=== PATIENT | male | born 1945 | race Caucasian/White ===

== ENCOUNTER 2018-08-26 14:06 | Outpatient (CLI) | payer MEDICARE, SELFPAY ==
[2018-08-26 14:36] LABS: Abs Immature Grans 0.01 k/cumm (0.0-0.09); Absolute Basophil Count 0.03 k/cumm (0.0-0.2); Absolute Eosinophil Count 0.16 k/cumm (0.0-0.7); Absolute Lymphocyte Count 2.21 k/cumm (1.2-3.4); Absolute Neutrophil Count 4.18 k/cumm (1.2-6.7); Basophils % 0.4; Eosinophils % 2.3; HCT 43.9 % (40.0-50.0); HGB 14.5 g/dL (13.5-17.5); Immature Grans % 0.1; Lymphocytes % 31.2; Mean Corpuscular Hemoglobin 28.3 pg (27.0-33.0); Mean Corpuscular Volume 85.6 fL (80-95); Mean Platelet Volume 9.7 fL (8.0-11.0); Monocytes % 7.1; Neutrophils % 58.9; Platelet Count 223 x1000/uL (130-400); RBC 5.13 m/cumm (4.50-6.00); RBC Distribution Width 14.5 % (11.8-14.1); White Blood Cell Count 7.09 k/cumm (4.4-10.8)
[2018-08-26 15:37] LABS: ALT 30 U/L (12-78); AST 22 U/L (15-37); Albumin 3.6 g/dL (3.4-5.0); Alkaline Phosphatase 76 U/L (46-116); Anion Gap 9.3 mmol/L (3-11); BUN 15 mg/dL (7-18); Bilirubin, Total 0.5 mg/dL (0.2-1.0); CO2 27.7 mmol/L (21.0-32.0); CREATININE 1.19 mg/dL (0.70-1.30); Calcium 8.8 mg/dL (8.5-10.1); Chloride 104 mmol/L (98-107); Glucose 124 mg/dL (70-100); Potassium 4.2 mmol/L (3.5-5.1); Sodium 141 mmol/L (136-145)
[2018-08-29 10:04] LABS: PSA, Diagnostic 1.2 ng/ml (0-6.5)
[2018-08-31 03:17] LABS: Testosterone, Total 515 ng/dL (240-950)
== END 2018-08-26 14:26 ==
PROVIDERS: PCP Internal Medicine; Visit Provider Internal Medicine
DX: C61 Malignant neoplasm of prostate (principal)
CPT/HCPCS: 36415; 80053; 84403; 84153; 85025

== ENCOUNTER 2018-11-24 11:45 | Outpatient (CLI) | payer MEDICARE, SELFPAY ==
[2018-11-24 12:15] LABS: Abs Immature Grans 0.01 k/cumm (0.0-0.09); Absolute Basophil Count 0.04 k/cumm (0.0-0.2); Absolute Eosinophil Count 0.24 k/cumm (0.0-0.7); Absolute Lymphocyte Count 2.33 k/cumm (1.2-3.4); Absolute Monocyte Count 0.83 k/cumm (0.11-0.7); Absolute Neutrophil Count 3.95 k/cumm (1.2-6.7); Basophils % 0.5; Eosinophils % 3.2; HCT 43.8 % (40.0-50.0); HGB 14.5 g/dL (13.5-17.5); Immature Grans % 0.1; Lymphocytes % 31.5; Mean Corp. HGB Concentration 33.1 g/dL (32.0-36.0); Mean Corpuscular Hemoglobin 28.8 pg (27.0-33.0); Mean Corpuscular Volume 86.9 fL (80-95); Mean Platelet Volume 9.8 fL (8.0-11.0); Monocytes % 11.2; Neutrophils % 53.5; Platelet Count 197 x1000/uL (130-400); RBC 5.04 m/cumm (4.50-6.00); RBC Distribution Width 14.4 % (11.8-14.1)
[2018-11-24 12:28] LABS: ALT 28 U/L (12-78); AST 21 U/L (15-37); Albumin 3.5 g/dL (3.4-5.0); Alkaline Phosphatase 62 U/L (46-116); Anion Gap 6.8 mmol/L (3-11); BUN 17 mg/dL (7-18); Bilirubin, Total 0.4 mg/dL (0.2-1.0); CO2 26.2 mmol/L (21.0-32.0); CREATININE 1.12 mg/dL (0.70-1.30); Calcium 8.6 mg/dL (8.5-10.1); Chloride 105 mmol/L (98-107); Glucose 98 mg/dL (70-100); Potassium 4.4 mmol/L (3.5-5.1); Sodium 138 mmol/L (136-145); Total Protein 7.2 g/dL (6.4-8.2)
[2018-11-25 08:53] LABS: PSA, Diagnostic 1.2 ng/ml (0-6.5)
[2018-11-27 15:04] LABS: Testosterone, Total 529 ng/dL (240-950)
== END 2018-11-24 12:05 ==
PROVIDERS: PCP Internal Medicine; Visit Provider Internal Medicine
DX: C61 Malignant neoplasm of prostate (principal)
CPT/HCPCS: 36415; 80053; 84403; 84153; 85025

== ENCOUNTER 2019-02-24 12:50 | Outpatient (CLI) | payer MEDICARE, SELFPAY ==
[2019-02-24 13:18] LABS: Abs Immature Grans 0.01 k/cumm (0.0-0.09); Absolute Basophil Count 0.05 k/cumm (0.0-0.2); Absolute Eosinophil Count 0.18 k/cumm (0.0-0.7); Absolute Lymphocyte Count 2.73 k/cumm (1.2-3.4); Absolute Neutrophil Count 3.78 k/cumm (1.2-6.7); Basophils % 0.7; Eosinophils % 2.4; HCT 42.4 % (40.0-50.0); HGB 14.1 g/dL (13.5-17.5); Immature Grans % 0.1; Lymphocytes % 36.6; Mean Corp. HGB Concentration 33.3 g/dL (32.0-36.0); Mean Corpuscular Hemoglobin 28.8 pg (27.0-33.0); Mean Corpuscular Volume 86.5 fL (80-95); Mean Platelet Volume 9.9 fL (8.0-11.0); Monocytes % 9.4; Neutrophils % 50.8; Platelet Count 213 x1000/uL (130-400); RBC Distribution Width 14.2 % (11.8-14.1); White Blood Cell Count 7.45 k/cumm (4.4-10.8)
[2019-02-24 14:20] LABS: ALT 29 U/L (12-78); AST 23 U/L (15-37); Albumin 3.8 g/dL (3.4-5.0); Alkaline Phosphatase 70 U/L (46-116); Anion Gap 10.2 mmol/L (3-11); BUN 17 mg/dL (7-18); Bilirubin, Total 0.4 mg/dL (0.2-1.0); CO2 25.8 mmol/L (21.0-32.0); CREATININE 1.18 mg/dL (0.70-1.30); Calcium 8.8 mg/dL (8.5-10.1); Chloride 103 mmol/L (98-107); Glucose 87 mg/dL (70-100); Potassium 4.4 mmol/L (3.5-5.1); Sodium 139 mmol/L (136-145); Total Protein 7.2 g/dL (6.4-8.2)
[2019-02-27 09:55] LABS: PSA, Diagnostic 1.5 ng/ml (0-6.5)
[2019-02-28 03:58] LABS: Testosterone, Total 586 ng/dL (240-950)
== END 2019-02-24 13:10 ==
PROVIDERS: PCP Internal Medicine; Visit Provider Internal Medicine
DX: C61 Malignant neoplasm of prostate (principal)
CPT/HCPCS: 36415; 80053; 84403; 84153; 85025

== ENCOUNTER 2019-05-24 16:12 | Outpatient (CLI) | payer MEDICARE, SELFPAY ==
[2019-05-24 17:12] LABS: Abs Immature Grans 0.01 k/cumm (0.0-0.09); Absolute Basophil Count 0.03 k/cumm (0.0-0.2); Absolute Eosinophil Count 0.19 k/cumm (0.0-0.7); Absolute Monocyte Count 0.92 k/cumm (0.11-0.7); Absolute Neutrophil Count 5.17 k/cumm (1.2-6.7); Basophils % 0.3; Eosinophils % 2.2; HCT 41.7 % (40.0-50.0); Immature Grans % 0.1; Lymphocytes % 28.3; Mean Corp. HGB Concentration 33.6 g/dL (32.0-36.0); Mean Corpuscular Hemoglobin 29.2 pg (27.0-33.0); Mean Corpuscular Volume 87.1 fL (80-95); Monocytes % 10.4; Neutrophils % 58.7; Platelet Count 203 x1000/uL (130-400); RBC 4.79 m/cumm (4.50-6.00); RBC Distribution Width 14.3 % (11.8-14.1); White Blood Cell Count 8.82 k/cumm (4.4-10.8)
[2019-05-24 17:30] LABS: ALT 30 U/L (12-78); AST 26 U/L (15-37); Albumin 3.8 g/dL (3.4-5.0); Alkaline Phosphatase 68 U/L (46-116); Anion Gap 11.4 mmol/L (3-11); BUN 18 mg/dL (7-18); Bilirubin, Total 0.4 mg/dL (0.2-1.0); CO2 24.6 mmol/L (21.0-32.0); Chloride 106 mmol/L (98-107); Estimated GFR 59.51 (mL/min/1.73m2); Glucose 94 mg/dL (70-100); Potassium 4.6 mmol/L (3.5-5.1); Sodium 142 mmol/L (136-145); Total Protein 6.9 g/dL (6.4-8.2)
[2019-05-26 09:04] LABS: PSA, Diagnostic 1.7 ng/ml (0-6.5)
[2019-05-27 11:41] LABS: Testosterone, Total 552 ng/dL (240-950)
== END 2019-05-24 16:32 ==
PROVIDERS: PCP Internal Medicine; Visit Provider Internal Medicine
DX: C61 Malignant neoplasm of prostate (principal)
CPT/HCPCS: 36415; 80053; 84403; 84153; 85025

== ENCOUNTER 2019-08-23 14:25 | Outpatient (CLI) | payer MEDICARE, SELFPAY ==
[2019-08-23 15:02] LABS: Abs Immature Grans 0.01 k/cumm (0.0-0.09); Absolute Basophil Count 0.04 k/cumm (0.0-0.2); Absolute Eosinophil Count 0.12 k/cumm (0.0-0.7); Absolute Lymphocyte Count 2.36 k/cumm (1.2-3.4); Absolute Monocyte Count 0.67 k/cumm (0.11-0.7); Absolute Neutrophil Count 4.16 k/cumm (1.2-6.7); Basophils % 0.5; Eosinophils % 1.6; HCT 41.8 % (40.0-50.0); HGB 13.9 g/dL (13.5-17.5); Immature Grans % 0.1; Lymphocytes % 32.1; Mean Corp. HGB Concentration 33.3 g/dL (32.0-36.0); Mean Corpuscular Hemoglobin 29.1 pg (27.0-33.0); Mean Corpuscular Volume 87.4 fL (80-95); Monocytes % 9.1; Neutrophils % 56.6; Platelet Count 235 x1000/uL (130-400); RBC 4.78 m/cumm (4.50-6.00); RBC Distribution Width 14.3 % (11.8-14.1); White Blood Cell Count 7.36 k/cumm (4.4-10.8)
[2019-08-23 16:19] LABS: ALT 24 U/L (16-63); AST 22 U/L (15-37); Albumin 3.7 g/dL (3.4-5.0); Alkaline Phosphatase 59 U/L (46-116); Anion Gap 9.2 mmol/L (3-11); BUN 18 mg/dL (7-18); Bilirubin, Total 0.4 mg/dL (0.2-1.0); CO2 27.8 mmol/L (21.0-32.0); CREATININE 1.33 mg/dL (0.70-1.30); Calcium 8.8 mg/dL (8.5-10.1); Chloride 105 mmol/L (98-107); Estimated GFR 52.85 (mL/min/1.73m2); Glucose 116 mg/dL (70-100); Potassium 4.3 mmol/L (3.5-5.1); Sodium 142 mmol/L (136-145); Total Protein 6.9 g/dL (6.4-8.2)
[2019-08-24 09:54] LABS: PSA, Diagnostic 1.8 ng/ml (0-6.5)
[2019-08-26 12:57] LABS: Testosterone, Total 506 ng/dL (240-950)
== END 2019-08-23 14:45 ==
PROVIDERS: PCP Internal Medicine; Visit Provider Internal Medicine
DX: C61 Malignant neoplasm of prostate (principal)
CPT/HCPCS: 36415; 80053; 84403; 84153; 85025

== ENCOUNTER 2019-11-22 10:06 | Outpatient (CLI) | payer MEDICARE, SELFPAY ==
[2019-11-22 10:28] LABS: Absolute Basophil Count 0.04 k/cumm (0.0-0.2); Absolute Eosinophil Count 0.19 k/cumm (0.0-0.7); Absolute Lymphocyte Count 2.27 k/cumm (1.2-3.4); Absolute Monocyte Count 0.68 k/cumm (0.11-0.7); Absolute Neutrophil Count 3.71 k/cumm (1.2-6.7); Basophils % 0.6; Eosinophils % 2.8; HCT 42.5 % (40.0-50.0); HGB 14.3 g/dL (13.5-17.5); Lymphocytes % 32.9; Mean Corp. HGB Concentration 33.6 g/dL (32.0-36.0); Mean Corpuscular Hemoglobin 29.4 pg (27.0-33.0); Mean Corpuscular Volume 87.4 fL (80-95); Mean Platelet Volume 9.4 fL (8.0-11.0); Monocytes % 9.9; Neutrophils % 53.8; Platelet Count 223 x1000/uL (130-400); RBC 4.86 m/cumm (4.50-6.00); RBC Distribution Width 13.8 % (11.8-14.1); White Blood Cell Count 6.89 k/cumm (4.4-10.8)
[2019-11-22 11:56] LABS: ALT 26 U/L (16-63); AST 21 U/L (15-37); Albumin 3.8 g/dL (3.4-5.0); Alkaline Phosphatase 63 U/L (46-116); Anion Gap 8.9 mmol/L (3-11); BUN 20 mg/dL (7-18); Bilirubin, Total 0.5 mg/dL (0.2-1.0); CO2 27.1 mmol/L (21.0-32.0); CREATININE 1.13 mg/dL (0.70-1.30); Calcium 9.1 mg/dL (8.5-10.1); Chloride 107 mmol/L (98-107); Glucose 84 mg/dL (74-106); Potassium 4.6 mmol/L (3.5-5.1); Sodium 143 mmol/L (136-145)
[2019-11-23 15:02] LABS: PSA, Diagnostic 1.9 ng/mL (0.0-6.5)
[2019-11-24 10:17] LABS: Testosterone, Total 477 ng/dL (240-950)
== END 2019-11-22 10:26 ==
PROVIDERS: PCP Internal Medicine; Visit Provider Internal Medicine
DX: C61 Malignant neoplasm of prostate (principal)
CPT/HCPCS: 36415; 80053; 84403; 84153; 85025

== ENCOUNTER 2020-03-22 07:21 | Outpatient (CLI) | payer MEDICARE, SELFPAY ==
[2020-03-22 07:48] LABS: Abs Immature Grans 0.01 k/cumm (0.0-0.09); Absolute Basophil Count 0.03 k/cumm (0.0-0.2); Absolute Eosinophil Count 0.19 k/cumm (0.0-0.7); Absolute Lymphocyte Count 2.03 k/cumm (1.2-3.4); Absolute Monocyte Count 0.85 k/cumm (0.11-0.7); Absolute Neutrophil Count 4.39 k/cumm (1.2-6.7); Basophils % 0.4; Eosinophils % 2.5; HCT 41.5 % (40.0-50.0); HGB 13.7 g/dL (13.5-17.5); Immature Grans % 0.1 %; Lymphocytes % 27.1; Mean Corpuscular Hemoglobin 29.1 pg (27.0-33.0); Mean Corpuscular Volume 88.3 fL (80-95); Mean Platelet Volume 9.7 fL (8.0-11.0); Monocytes % 11.3; Neutrophils % 58.6; Platelet Count 240 x1000/uL (130-400); RBC Distribution Width 14.5 % (11.8-14.1)
[2020-03-22 08:41] LABS: ALT 30 U/L (16-63); AST 25 U/L (15-37); Albumin 3.5 g/dL (3.4-5.0); Alkaline Phosphatase 62 U/L (46-116); Anion Gap 8.2 mmol/L (3-11); BUN 20 mg/dL (7-18); Bilirubin, Total 0.5 mg/dL (0.2-1.0); CO2 26.8 mmol/L (21.0-32.0); CREATININE 1.28 mg/dL (0.70-1.30); Calcium 8.5 mg/dL (8.5-10.1); Chloride 105 mmol/L (98-107); Estimated GFR 55.09 (mL/min/1.73m2); Glucose 82 mg/dL (74-106); Potassium 4.4 mmol/L (3.5-5.1); Sodium 140 mmol/L (136-145); Total Protein 6.9 g/dL (6.4-8.2)
== END 2020-03-22 07:41 ==
PROVIDERS: PCP Internal Medicine; Visit Provider Internal Medicine
DX: C61 Malignant neoplasm of prostate (principal)
CPT/HCPCS: 36415; 80053; 84153; 85025

== ENCOUNTER 2020-07-25 03:03 | Outpatient (CLI) | payer MEDICARE, SELFPAY ==
[2020-07-25 10:28] LABS: Abs Immature Grans 0.01 10^3/uL (0.0-0.06); Absolute Basophil Count 0.05 10^3/uL (0.0-0.2); Absolute Eosinophil Count 0.16 10^3/uL (0.0-0.7); Absolute Monocyte Count 0.75 10^3/uL (0.1-0.8); Absolute Neutrophil Count 3.17 10^3/uL (1.2-6.7); Basophils % 0.8; Eosinophils % 2.6; HCT 43.5 % (40.0-50.0); HGB 14.3 g/dL (13.5-17.5); Immature Grans % 0.2; Lymphocytes % 31.5; MCH 28.9 pg (27.0-33.0); MCHC 32.9 % (32.0-36.0); MCV 88.1 fL (80-95); MPV 9.6 fL (8.0-11.0); Monocytes % 12.4; Neutrophils % 52.5; Nucleated RBC 0 %; Platelet Count 200 10^3/uL (130-400); RBC 4.94 10^6/uL (4.36-5.78); RDW-SD 44.4 fL; WBC 6.04 10^3/uL (4.4-10.8)
[2020-07-25 10:47] LABS: ALT 27 U/L (16-63); AST 22 U/L (15-37); Albumin 3.6 g/dL (3.4-5.0); Alkaline Phosphatase 59 U/L (46-116); Anion Gap 7.6 mmol/L (3-11); BUN 19 mg/dL (7-18); Bilirubin, Total 0.6 mg/dL (0.2-1.0); CO2 27.4 mmol/L (21.0-32.0); CREATININE 1.38 mg/dL (0.70-1.30); Calcium 8.9 mg/dL (8.5-10.1); Chloride 104 mmol/L (98-107); Estimated GFR 50.51 (mL/min/1.73m2); Glucose 97 mg/dL (74-106); Potassium 4.5 mmol/L (3.5-5.1); Sodium 139 mmol/L (136-145); Total Protein 7.1 g/dL (6.4-8.2)
[2020-07-26 15:35] LABS: PSA, Ultrasensitive 2.4 ng/mL (<= 6.5)
== END 2020-07-25 03:23 ==
PROVIDERS: PCP Internal Medicine; Visit Provider Internal Medicine
DX: C61 Malignant neoplasm of prostate (principal)
CPT/HCPCS: 36415; 80053; 84153; 85025

== ENCOUNTER 2020-11-21 02:54 | Outpatient (CLI) | payer MEDICARE, SELFPAY ==
[2020-11-21 09:05] LABS: Abs Immature Grans 0.01 10^3/uL (0.0-0.06); Absolute Basophil Count 0.05 10^3/uL (0.0-0.2); Absolute Lymphocyte Count 2.71 10^3/uL (1.2-3.4); Absolute Monocyte Count 0.71 10^3/uL (0.1-0.8); Basophils % 0.7; Eosinophils % 2.7; HCT 40.2 % (40.0-50.0); HGB 13.4 g/dL (13.5-17.5); Immature Grans % 0.1; Lymphocytes % 36.7; MCH 29.1 pg (27.0-33.0); MCHC 33.3 % (32.0-36.0); MCV 87.4 fL (80-95); MPV 9.4 fL (8.0-11.0); Monocytes % 9.6; Neutrophils % 50.2; Nucleated RBC 0 %; Platelet Count 233 10^3/uL (130-400); RDW 13.4 % (11.8-14.1); RDW-SD 42.6 fL; WBC 7.38 10^3/uL (4.4-10.8)
[2020-11-21 10:01] LABS: ALT 34 U/L (16-63); AST 23 U/L (15-37); Albumin 3.7 g/dL (3.4-5.0); Alkaline Phosphatase 78 U/L (46-116); Anion Gap 7.5 mmol/L (3-11); BUN 24 mg/dL (7-18); Bilirubin, Total 0.4 mg/dL (0.2-1.0); CO2 27.5 mmol/L (21.0-32.0); CREATININE 1.25 mg/dL (0.70-1.30); Calcium 8.8 mg/dL (8.5-10.1); Chloride 106 mmol/L (98-107); Estimated GFR 56.46 (mL/min/1.73m2); Glucose 83 mg/dL (74-106); Potassium 4.4 mmol/L (3.5-5.1); Sodium 141 mmol/L (136-145); Total Protein 7.2 g/dL (6.4-8.2)
[2020-11-22 11:59] LABS: PSA, Ultrasensitive 0.07 ng/mL (<= 6.5)
== END 2020-11-21 03:14 ==
PROVIDERS: PCP Internal Medicine; Visit Provider Internal Medicine
DX: C61 Malignant neoplasm of prostate (principal)
CPT/HCPCS: 36415; 80053; 84153; 85025

== ENCOUNTER 2021-02-25 03:50 | Outpatient (CLI) | payer MEDICARE, SELFPAY ==
[2021-02-25 10:57] LABS: Abs Immature Grans 0.01 10^3/uL (0.0-0.06); Absolute Basophil Count 0.05 10^3/uL (0.0-0.2); Absolute Eosinophil Count 0.13 10^3/uL (0.0-0.7); Absolute Lymphocyte Count 1.92 10^3/uL (1.2-3.4); Absolute Monocyte Count 0.66 10^3/uL (0.1-0.8); Absolute Neutrophil Count 3.67 10^3/uL (1.2-6.7); Basophils % 0.8; HGB 12.9 g/dL (13.5-17.5); Immature Grans % 0.2; Lymphocytes % 29.8; MCH 29.6 pg (27.0-33.0); MCHC 33.9 % (32.0-36.0); MCV 87.2 fL (80-95); MPV 9.7 fL (8.0-11.0); Monocytes % 10.2; Nucleated RBC 0 %; Platelet Count 233 10^3/uL (130-400); RBC 4.36 10^6/uL (4.36-5.78); RDW 13.2 % (11.8-14.1); RDW-SD 41.9 fL; WBC 6.44 10^3/uL (4.4-10.8)
[2021-02-25 11:10] LABS: ALT 34 U/L (16-63); AST 23 U/L (15-37); Albumin 3.6 g/dL (3.4-5.0); Alkaline Phosphatase 71 U/L (46-116); Anion Gap 8.7 mmol/L (3-11); BUN 23 mg/dL (7-18); Bilirubin, Total 0.4 mg/dL (0.2-1.0); CO2 26.3 mmol/L (21.0-32.0); CREATININE 1.2 mg/dL (0.70-1.30); Calcium 8.7 mg/dL (8.5-10.1); Chloride 106 mmol/L (98-107); Estimated GFR 59.18 (mL/min/1.73m2); Glucose 96 mg/dL (74-106); Potassium 4.1 mmol/L (3.5-5.1); Sodium 141 mmol/L (136-145); Total Protein 7.4 g/dL (6.4-8.2)
[2021-02-26 15:42] LABS: PSA, Ultrasensitive 0.02 ng/mL (<= 6.5)
[2021-02-27 17:00] LABS: Testosterone, Total <7.0 ng/dL (240-950)
== END 2021-02-25 03:51 | disposition home or self-care (01) ==
PROVIDERS: Internal Medicine; PCP Internal Medicine; Visit Provider Nurse Practitioner Adult Health
DX: C61 Malignant neoplasm of prostate (principal); Z79.818 Long term (current) use of other agents affecting estrogen receptors and estrogen levels
CPT/HCPCS: 36415; 80053; 84153; 84403; 85025

== ENCOUNTER 2021-07-03 09:21 | Outpatient (CLI) | payer MEDICARE, SELFPAY ==
--- OUTSIDE RECORDS SUMMARY | 2021-07-03 09:25 | XMS_ITS ---
:1945 Author Care Team Providers Name Role Phone DR. KIM GARSIA Primary Care Provider [phone] DR. KIM GARSIA Referring Provider [phone] KIM GARSIA (DIRECT) Primary Care Provider [phone] Allergies Code Code System Name Reaction Severity Status Onset [id number] RxNorm Zestril Hives ? Active ? Medications Name Status Start Date Stop Date ? ? Asprin Ec Low Dose 81 mg tablet,delayed release Active ? Not available Take 1 tablet every day by oral route. atorvastatin 40 mg tablet Active ? Not av ailable TAKE 1 TABLET BY MOUTH EVERY DAY bicalutamide 50 mg tablet Completed 01/19/20172016 Take 1 tablet every day by oral route. Calcium with Vitamin D 600 mg (1,500 mg)-400 unit tablet Active ? Not available Take by oral route. cannabidiol (CBD) oral oil Active ? Not a vailable daily Ciprodex 0.3 %-0.1 % ear drops,suspension Completed ? 03/13/2019 INSTILL 4 DROPS INTO AFFECTED EAR 2 TIMES PER DAY FOR 7 DAYS clotrimazole 1 % topical solution Completed 03/13/2019 03/13/2019 APPLY in Rt ear , 5 drops three times a day for 10 days AND SURROUNDING AREAS OF SKIN BY TOPICAL ROUTE 2 TIMES PER DAY IN THE MORNING AND EVENING cyclobenzaprine 10 mg tablet Active ? Not available 1/2 - 1 tab every 6-8 hrs as needed for muscle pain and spasm for low back - max 3/d Efudex 5 % topical cream Completed ? 020 APPLY A SUFFICIENT AMOUNT TO COVER THE LESIONS IN THE AFFECTED AREA(S) BY TOPICAL ROUTE 2 TIMES PER DAY emu oil (bulk) 100 % liquid Active 06/01/2016 Not available finasteride 5 mg tablet Active ? Not avai lable TAKE 1 TABLET BY MOUTH EVERY DAY gabapentin 300 mg capsule Completed ? 2019 Take 1 capsule 3 times a day by oral route as needed for 30 day s. ketoconazole 2 % topical cream Completed ? 0 01/24/2020 APPLY TO THE AFFECTED AREA(S) BY TOPICAL ROUTE ONCE DAILY leuprolide Completed 02/02/2017 06/03/2017 Lotrimin AF (clotrimazole) 1 % topical cream Completed ? 06/03/2017 APPLY TO THE AFFECTED AND SURROUNDING A REAS OF SKIN BY TOPICAL ROUTE 2 TIMES PER DAY IN THE MORNING AND EVENING for groin rash Lupron Depot 22.5 mg (3 month) intramuscular syringe kit Active 07/30/2020 Not available Inject 1 kit every 3 months by intramuscular route as needed. Medrol (Carlo) 4 mg tablets in a dose pack Completed ? 08/15/2020 take in am as directed with food meloxicam 15 mg tablet Completed ? 8 Take 1 tablet every day by oral route with meals for 21 days. mupirocin 2 % topical ointment Completed ? 0 01/24/2020 APPLY A SMALL AMOUNT TO THE AFFECTED AR EA on bottom lip BY TOPICAL ROUTE 3 TIMES PER DAY nitroglycerin 0.4 mg sublingual tablet Active ? Not available Place 1 tablet as needed by sublingual route as directed. take under tongue at onset of chest charanjit n while sitting /laying down - if pain persist repeat every 5 min for total of three and call 911 tamsulosin 0.4 mg capsule Active ? Not av ailable TAKE 2 CAPSULES BY MOUTH ONCE DAILY 1/2 HOUR FOLLOWING SAME M EAL EACH DAY Valtrex 1 gram tablet Completed ? 01/24/2020 Take 1 tablet every 12 hours by oral route for 3 days. Problems Name Status Onset Date Source ? Hearing Loss Active 02/13/2001 ? Coronary Arteriosclerosis Active 08/22/2001 ? Diverticulitis Unknown 12/11/2001 ? Diverticular Disease Active 10/11/2002 ? Plantar Fasciitis Active 07/16/2004 ? Rotator Cuff Syndrome Active 04/15/2007 ? Malignant Tumor of Prostate Active 06/15/2008 ? Hypercholesterolemia Active 04/26/2014 ? Hyperglycemia Active 04/26/2014 ? Pityriasis Versicolor Unknown 05/04/2014 ? Polyp of Colon Active 10/28/2016 ? Chronic Back Pain Active 10/28/2016 ? History of Male Erectile Disorder Active 10/28/2016 ? Adult Health Examination Active 10/28/2016 ? Bladder Muscle Dysfunction - Overactive Active 08/18/20 17 ? Medication Monitoring Unknown 10/27/2018 ? Benign Prostatic Hyperplasia Active 08/15/2020 ? Actinic Keratosis Active 08/15/2020 ? Prolapsed Lumbar Intervertebral Disc Active ? ? Procedures Date Name Performed by ? 12/09/2011 Repair of Shoulder Information not amggie cheema Notes: repair of left rotator cuff by Dr Thompson Results Lab Results Date Name Specimen Result Interpretation Description Value Range Status Address ? 08/09/2020 HbA1C WB High A1C 5.8 % <5.7 Final [facility] e (Hemoglobin % Hospi ashish a1C), Blood (Lab) : [address] [place] [address] ? ? WB Normal Estavegluc 120 calc <140 Final [facility] Hospital (Lab): [address] [place] [address] 08/09/2020 Lipid Panel, P Normal Chol 149 mg/dL <200 Gabriela [facility] Serum mg/dL Hospital (Lab): [address] [place] [address] ? ? P Normal Hdl 43 mg/dL 40-60 Final [facility] mg/dL Hospital (Lab): [address] [place] [address] ? ? P Normal Trig 108 mg/dL 30-15 Final [facility] 0 Hospital mg/dL (Lab): [address] [place] [address] ? ? P Normal LDL(C) 85 calc <100 Final [facility] Hospital (Lab): [address] [place] [address] ? ? P ? Risk 3.5 calc ? Final [facility] Hospital (Lab): [address] [place] [address] 08/09/2020 CMP, Serum or P Normal Na 141 mEq/L 136-1 Fin al [facility] Plasma 45 Hospital mEq/L (Lab): [address] [place] [address] ? ? P Normal K 4.5 mEq/L 3.5-5 Final [facility] .1 Hospital mEq/L (Lab): [address] [place] [address] ? ? P Normal Cl 105 mEq/L 98-10 Final [facility] 7 Hospital mEq/L (Lab): [address] [place] [address] ? ? P Normal Co2 27 mEq/L 21-31 Final [facility] mEq/L Hospital (Lab): [address] [place] [address] ? ? P ? Agap 13.5 ? Final [facility] calculation Hospi ashish (Lab): [address] [place] [address] ? ? P Normal Glu 89 mg/dL 70-10 Final [facility] 0 Hospital mg/dL (Lab): [address] [place] [address] ? ? P Normal Bun 18 mg/dL 7-18 Final [facility] mg/dL Hospital (Lab): [address] [place] [address] ? ? P Normal Creat 1.24 mg/dL 0.70- Final [facility] 1.30 Hospital mg/dL (Lab): [address] [place] [address] ? ? P ? Bn/cr 14.5 ratio ? Final [facility] (Lab): [address] [place] [address] ? ? P Normal Ca 9.1 mg/dL 8.5-1 Final [facility] 0.1 Hospital mg/dL (Lab): [address] [place] [address] ? ? P Normal Alkp 55 U/L 38-12 Final [facility] 6 U/L Hospital (Lab): [address] [place] [address] ? ? P Normal Alt 29 U/L 16-63 Final [facility] U/L Hospital (Lab): [address] [place] [address] ? ? P Normal Ast 22 U/L 15-37 Final [facility] U/L Hospital (Lab): [address] [place] [address] ? ? P Normal Tbil 0.5 mg/dL <=1.2 Final [facility] mg/dL Hospital (Lab): [address] [place] [address] ? ? P Normal Tp 7.0 g/dL 6.4-8 [facility] g/dL (Lab): [address] [place] [address] ? ? P Normal Alb 3.7 g/dL 3.4-5 [facility] .[facility] Hospital g/dL (Lab): [address] [place] [address] ? ? P ? Glob 3.28 mg/dL ? Final [facility] (Lab): [address] [place] [address] ? ? P ? A/g 1.1 calc ? Final [facility] Hospital (Lab): [address] [place] [address] ? ? P ? Egfraa 69.26 ? Final [facility] Hospital (Lab): [address] [place] [address] ? ? P ? Egfrnaa 57.14 ? Final [facility] Hospital (Lab): [address] [place] [address] 09/14/2019 Urinalysis, ? Appearance Clear ? ? Rh - Dipstick Internal Medicine: [facility] ? ? ? Glucose Negative ? ? [facility] - Internal Medicine: [facility] ? ? ? Bilirubin Small ? ? [facility] - Internal Medicine: [facility] ? ? ? Ketones Negative ? ? [facility] - Internal Medicine: [facility] ? ? ? Specific 1.010 ? ? [facility] [place] [facility]: [facility] ? ? ? Blood Negative ? ? [facility] - Internal Medicine: [facility] ? ? ? Ph 7.5 ? ? [facility] - Internal Medicine: [facility] ? ? ? Protein Negative ? ? [facility] - Internal Medicine: [facility] ? ? ? Urobilirubin Normal ? ? [facility] - Internal Medicine: [facility] ? ? ? Nitrates negative ? ? Rhc - Internal Medicine: [address] [place] [address] ? ? ? Leukocytes Negative ? ? [facility] - Internal Medicine: [address] [place] [address] 08/02/2019 HbA1C WB Normal A1C 5.9 % 4.5-6 Final [facility] e (Hemoglobin .2 % Hospi [facility] a1C), Blood (Lab) : [address] [place] [address] ? ? WB ? Eag 123 calc ? Final [facility] Hospital (Lab): [address] [place] [address] 08/02/2019 CMP, Serum or P Normal Na 141 mEq/L 136-1 Fin al [facility] Plasma 45 Hospital mEq/L (Lab): [address] [place] [address] ? ? P Normal K 4.8 mEq/L 3.5-5 Final [facility] .1 Hospital mEq/L (Lab): [address] [place] [address] ? ? P Normal Cl 106 mEq/L 98-10 Final [facility] 7 Hospital mEq/L (Lab): [address] [place] [address] ? ? P Normal Co2 28 mEq/L 21-32 Final [facility] mEq/L Hospital (Lab): [address] [place] [address] ? ? P ? Agap 12.9 ? Final [facility] calculation Hospi ashish (Lab): [address] [place] [address] ? ? P Normal Glu 89.0 mg/dL 70.0- Final [facility] e 100.0 Hospital mg/dL (Lab): [address] [place] [address] ? ? P High Bun 19 mg/dL 7-18 Final [facility] mg/dL Hospital (Lab): [address] [place] [address] ? ? P Normal Creat 1.24 mg/dL 0.70- Final [facility] e 1.30 Hospital mg/dL (Lab): [address] [place] [address] ? ? P ? Bn/cr 15.5 ratio ? Final [facility] (Lab): [address] [place] [address] ? ? P Normal Ca 9.1 mg/dL 8.5-1 Final [facility] 0.1 Hospital mg/dL (Lab): [address] [place] [address] ? ? P Normal Alkp 56 U/L 38-12 Final [facility] 6 U/L Hospital (Lab): [address] [place] [address] ? ? P Normal Alt 21 U/L 16-63 Final [facility] U/L Hospital (Lab): [address] [place] [address] ? ? P Normal Ast 29 U/L 15-37 Final [facility] U/L Hospital (Lab): [address] [place] [address] ? ? P Normal Tbil 0.4 mg/dL <=1.2 Final [facility] mg/dL Hospital (Lab): [address] [place] [address] ? ? P Normal Tp 7.1 g/dL 6.4-8 Final [facility] .[facility] Hospital g/dL (Lab): [address] [place] [address] ? ? P Normal Alb 3.7 g/dL 3.4-5 Final [facility] .[facility] Hospital g/dL (Lab): [address] [place] [address] ? ? P ? Glob 3.36 mg/dL ? Final [facility] (Lab): [address] [place] [address] ? ? P ? A/g 1.1 calc ? Final [facility] (Lab): [address] [place] [address] ? ? P ? Egfraa 69.45 ? Final [facility] Hospital (Lab): [address] [place] [address] ? ? P ? Egfrnaa 57.30 ? Final [facility] Hospital (Lab): [facility] 08/02/2019 Lipid Panel P Normal Chol 140 mg/dL <200 Final [facility] W/ Direct mg/dL Hospita l LDL, Serum (Lab): [facility] ? ? P Normal Hdl 47 mg/dL 40-60 Final [facility] mg/dL Hospital (Lab): [facility] ? ? P Normal Trig 49 mg/dL 30-15 Final [facility] 0 Hospital mg/dL (Lab): [facility] ? ? P Normal LDL(C) 84 calc <100 Final [facility] calc Hospital (Lab): [facility] ? ? P ? Risk 3.0 calc ? Final [facility] Hospital (Lab): [facility] 06/14/2018 Urinalysis, ? Appearance Clear ? ? Rhc - [facility] Internal Medicine: [address] [place] [address] ? ? ? Glucose negative ? ? [facility] - Internal Medicine: [address] [place] [address] ? ? ? Bilirubin negative ? ? [facility] - Internal Medicine: [address] [place] [address] ? ? ? Ketones negative ? ? [facility] - Internal Medicine: [address] [place] [address] ? ? ? Specific 1.025 ? ? [facility] - [place] [facility]: [address] [place] [address] ? ? ? Blood negative ? ? [facility] - Internal Medicine: [address] [place] [address] ? ? ? Ph 6.0 ? ? [facility] - Internal Medicine: [address] [place] [address] ? ? ? Protein negative ? ? [facility] - Internal Medicine: [address] [place] [address] ? ? ? Urobilirubin normal ? ? [facility] - Internal Medicine: [address] [place] [address] ? ? ? Nitrates negative ? ? [facility] - Internal Medicine: [address] [place] [address] ? ? ? Leukocytes negative ? ? [facility] - Internal Medicine: [address] [place] [address] 06/07/2018 Cbc ? Wbc 7.7 x10^3/uL 4.8-1 [facility] 0.8 Hospital x10^3 (Lab): 90 /uL [facility] ? ? ? Rbc 4.99 4.20- Final [facility] x10^6/uL 5.90 Hospital x10^6 (Lab): 90 /uL [facility] ? ? ? Hgb 14.3 g/dL 13.5- Final [facility] 17.5 Hospital g/dL (Lab): [facility] ? ? ? Hct 42.9 % 40.0- Final [facility] 50.0 Hospital % (Lab): [facility] ? ? ? Mcv 86.0 fL 80.0- Final [facility] 97.0 Hospital fL (Lab): [facility] ? ? Low Mch 28.7 pg 33.0- [facility] 36.0 Hospital pg (Lab): [facility] ? ? ? Mchc 33.3 g/dL 33.0- [facility] 36.0 Hospital g/dL (Lab): [facility] ? ? ? RDW-CV 14.3 % 11.6- Final [facility] 14.8 Hospital % (Lab): [facility] ? ? ? Plt 190 x10^3/uL 150-4 Final [facility] 00 Hospital x10^3 (Lab): 90 /uL [facility] ? ? ? Neut % 57.8 % 40.0- Final [facility] 74.0 Hospital % (Lab): [facility] ? ? ? Lymph % 28.5 % 19.0- [facility] 48.0 Hospital % (Lab): [facility] ? ? ? Pitkin% 10 % 3-10 [facility] % Hospital (Lab): [facility] ? ? ? Eos% 3 % 1-7 % [facility] (Lab): [facility] ? ? ? Baso% 0 % 0-2 % [facility] (Lab): [facility] ? ? ? Neut # 4.45 1.00- Final [facility] x10^3/uL 7.00 Hospital x10^3 (Lab): 90 /uL [facility] ? ? ? Lymph# 2.19 1.20- Final [facility] x10^3/uL 3.40 Hospital x10^3 (Lab): 90 /uL [facility] ? ? High Pitkin# 0.78 0.10- Final [facility] x10^3/uL 0.70 Hospital x10^3 (Lab): 90 /uL [facility] ? ? ? Eos # 0.25 0.00- Final [facility] x10^3/uL 0.70 Hospital x10^3 (Lab): 90 /uL [facility] ? ? ? Baso # 0.0 x10^3/uL 0.0-0 Final [facility] .2 Hospital x10^3 (Lab): 90 /uL [facility] 06/07/2018 HbA1C ? Hba1C 5.7 % 4.5-6 [facility] e (Hemoglobin .2 % Hospi [facility] a1C), Blood (Lab) : [address] [place] [address] ? ? High Mean Glucose 117 mg/dL 54-11 [facility] 5 Hospital mg/dL (Lab): [address] [place] [address] 06/07/2018 CMP, Serum or ? Sodium 141 mEq/L 136-1 Fi nal [facility] Plasma 45 Hospital mEq/L (Lab): [address] [place] [address] ? ? ? Potassium 4.5 mEq/L 3.5-5 Final [facility] .1 Hospital mEq/L (Lab): [address] [place] [address] ? ? ? Chloride 104 mEq/L 98-10 Final [facility] 7 Hospital mEq/L (Lab): [address] [place] [address] ? ? ? Carbon 26 mEq/L 21-32 Final [facility] Dioxide mEq/L Hospital (Lab): [address] [place] [address] ? ? ? Anion Gap 16 ratio ? Final [facility] (Lab): [address] [place] [address] ? ? ? Calcium 8.9 mg/dL 8.5-1 Final [facility] 0.1 Hospital mg/dL (Lab): [address] [place] [address] ? ? ? Glucose 93 mg/dL 74-10 [facility] 6 Hospital mg/dL (Lab): [address] [place] [address] ? ? ? Bun 18 mg/dL 7-18 [facility] mg/dL Hospital (Lab): [facility] ? ? ? Creatinine 1.21 mg/dL 0.70- Final [facility] 1.30 Hospital mg/dL (Lab): [facility] ? ? ? BUN/creat 14.9 calc 12.0- Final [facility] Ratio 20.0 Hospital calc (Lab): [facility] ? ? ? GFR >60 >=60 Final [facility] mL/min/1.73 mL/mi [facility]pi [facility] m2 n/1.7 (Lab): 90 3 m2 [facility] ? ? ? GFR >60 >=60 Final [facility] [place] mL/min/1.73 mL/mi Hos pital m2 n/1.7 (Lab): 90 3 m2 [facility] ? ? ? Total Protein 7.2 g/dL 6.4-8 Final [facility] .[facility] Hospital g/dL (Lab): [address] [place] [address] ? ? ? Albumin 3.9 g/dL 3.4-5 Final [facility] Hospital g/dL (Lab): [address] [place] [address] ? ? ? Globulin 3.3 g/dL ? Final [facility] (Lab): [address] [place] [address] ? ? ? A/g Ratio 1.2 calc 1.1-1 Final [facility] .[facility] Hospital calc (Lab): [facility] ? ? ? ALT(SGPT) 24 U/L 16-63 Final [facility] e U/L Hospital (Lab): [address] [place] [address] ? ? ? Ast (Sgot) 19 U/L 15-37 Final [facility] ge U/L Hospital (Lab): [address] [place] [address] ? ? ? Alk. 69 U/L 45-11 Final [facility] Phosphatase 5 U/L Hospi ashish (Lab): [address] [place] [address] ? ? ? Total 0.5 mg/dL 0.1-1 Final [facility] Bilirubin .2 Hospita l mg/dL (Lab): [address] [place] [address] 06/07/2018 Lipid Panel ? Cholesterol 141 mg/dL <=200 Final [facility] W/ Direct mg/dL Hospita l LDL, Serum (Lab): [facility] ? ? ? HDL 42 mg/dL 40-60 Final [facility] Cholesterol mg/dL Hospi ashish (Lab): [facility] ? ? ? Triglycerides 97 mg/dL 30-15 Final [facility] 0 Hospital mg/dL (Lab): [facility] ? ? ? HDL Risk 3.4 calc ? Final [facility] Hospital (Lab): [address] [place] [address] ? ? ? LDL 80 calc <=100 Final [facility] (Calculated) calc Hosp ital (Lab): [address] [place] [address] 06/07/2018 PSA, Serum or ? PSA, 0.93 NG/mL 0.00- Fi nal [facility] Plasma Diagnostic 4.00 Hospit al NG/mL (Lab): [address] [place] [address] 05/29/2017 Lipid Panel, ? Cholesterol 134 mg/dL -200 Final *DO Not Serum mg/dL Use* Ch Lab: [address] [place] [address] ? ? ? HDL Chol 46 mg/dL 40-60 Final *DO N ot mg/dL Use* Ch Lab: [address] [place] [address] ? ? ? Triglycerides 94 mg/dL 30-15 Final *DO Not 0 Use* Ch mg/dL Lab: [address] [place] [address] ? ? ? LDL 69 mg/dL -130 Final *DO Not Calculated mg/dL Use* C h Lab: [address] [place] [address] ? ? ? Risk 3 ? Final *DO Not Use* Ch Lab: [address] [place] [address] 05/29/2017 CMP, Serum or ? Glucose 92 mg/dL 74-10 Fi nal *DO Not Plasma 6 Use* Ch mg/dL Lab: [address] [place] [address] ? ? High Urea Nitrogen 22 mg/dL 7-18 Final *DO Not mg/dL Use* Ch Lab: [address] [place] [address] ? ? ? Creatinine 1.1 mg/dL 0.70- Final *D O Not 1.3 Use* Ch mg/dL Lab: 90 [facility] ? ? ? Sodium 141.4 mmol/L 136-1 Final *DO Not 45 Use* Ch mmol/ Lab: 90 L [facility] ? ? ? Potassium 4.6 mmol/L 3.5-5 Final *D O Not .1 Use* Ch mmol/ Lab: 90 L [facility] ? ? ? Chloride 106 mmol/l 98-10 Final *DO Not 7 Use* Ch mmol/ Lab: 90 l [facility] ? ? ? Carbon 28 mmol/l 21-32 Final *DO No t Dioxide mmol/ Use* Ch l Lab: 90 [facility] ? ? ? Calcium 9.1 mg/dL 8.5-1 Final *DO N ot 0.1 Use* Ch mg/dL Lab: 90 [facility] ? ? ? Anion Gap 12 ? Final *DO No t Use* Ch Lab: 90 [facility] ? ? ? BUN/crea 19.4 12-20 Final *DO Not Use* Ch Lab: 90 [facility] ? ? ? Glomerular >60 ? Final *DO N ot Filtration mL/min/1.73M Use* Ch Rate 2 Lab: [address] [place] [address] ? ? ? SGOT/AST 28 U/L 15-37 Final *DO Not U/L Use* Ch Lab: [address] [place] [address] ? ? ? SGPT/ALT 35 U/L 16-63 Final *DO Not U/L Use* Ch Lab: [address] [place] [address] ? ? ? Alkaline 65 U/L 46-11 Final *DO Not Phosphatase 6 U/L Use* Ch Lab: [address] [place] [address] ? ? ? T. Bili 0.5 mg/dL 0.2-1 Final *DO N ot .0 Use* Ch mg/dL Lab: [address] [place] [address] ? ? ? Alb 3.72 g/dL 3.4-5 Final *DO Not .0 Use* Ch g/dL Lab: [address] [place] [address] ? ? ? Total Protein 6.6 g/dL 6.4-8 Final *DO Not .2 Use* Ch g/dL Lab: [address] [place] [address] ? ? ? A/g Rat 1.3 1.1-1 Final *DO Not .8 Use* Ch Lab: [address] [place] [address] 05/29/2017 Hep C Ab W ? Hep C Ab Rfx negative ? Final *DO Not Rfx PCR HCV RNA by PCR U se* Ch [facility] 01[facility]07[facility] Pathology ? Path results ? ? *D O Not Study complete. Use* Ch see [facility] Lab: [address], [place] Past Encounters 08/15/2020 Malignant Tumor of Prostate; Adult Healt h Examination; Hyperglycemia; Hypercholesterolemia; Prolapsed Lumbar Intervertebral Disc; Polyp of Colon; Coronary Arteriosclerosis; Pityriasis Versicolor; Actini c Keratosis; Administration of Influenza Vaccine; Benign Prostatic Hyperplasia Kim Garsia MD: [address] [place] [phone], Ph. 01/24/2020 Prolapsed Lumbar Intervertebral Disc; Neela mbosacral Radiculitis Kim Garsia MD: [address] [place] [phone], Ph. [phone] Social History Tobacco Smoking Status Never Smoker Notes: 019-never Vaccine List Vaccine Type pneumococcal conjugate PCV 13 06/15/2016 pneumococcal polysaccharide PPV23 02/12/2012 Td(adult) unspecified formulation 11/15/1998 Tdap 07/25/2009 06/14/2018?0.5 mL zoster live 10/29/2009 zoster recombinant 04/25/2019 zoster, unspecified formulation 02/08/2019 Notes: 09/14/2019 Patient declin es flu vaccine Patient declined flu- 2011, 2013, 2015, 2016, 2017 Plan of Care Patient Instructions Continue the same medication(s) and call if you have any questions or concerns. Encourage getting Flu vaccine this seaso n- Encourage to be active, take walks and d o daily stretches to keep your body in good shape and healthy Encourage to keep a low intake of starch es and sweets and avoid large meals and portions to keep weight down and to avoid diabetes start taking medrol- dosepack with food in am for pain tylenol 500 mg 2 tab 3 times da manuel with food as needed Avoid lifting and heavy work on spine- Call if not better or if any side effect s Reminders Provider Appointments None recorded. ? ? Lab None recorded. ? ? Referral None recorded. ? ? Procedures None recorded. ? ? Surgeries None recorded. ? ? Imaging None recorded. ? ? Vitals 08/15/2020 08:30AM ANNUAL EXAM Height Weight BMI Blood Pressure 172.72 cm 85 kg 28.5 kg/m2 114/62 mm[Hg] 01/24/2020 10:10AM ACUTE - ESTABLISHED Height Weight BMI Blood Pressure 172.72 cm 87.63 kg 29.4 kg/m2 138/72 mm[Hg] 09/14/2019 10:10AM ACUTE - ESTABLISHED Height Weight BMI Blood Pressure 172.72 cm 85.28 kg 28.6 kg/m2 132/78 mm[Hg] 09/01/2019 10:40AM ACUTE - ESTABLISHED Height Weight BMI Blood Pressure 172.72 cm 84.37 kg 28.3 kg/m2 110/70 mm[Hg] 08/09/2019 11:30AM Annual Comprehensive Visit Height Weight BMI Blood Pressure 172.72 cm 83.91 kg 28.1 kg/m2 108/70 mm[Hg] 03/13/2019 09:50AM FOLLOW UP Height Weight BMI Blood Pressure 172.72 cm 87.09 kg 29.2 kg/m2 116/72 mm[Hg] 10/27/2018 09:10AM FOLLOW UP Height Weight BMI Blood Pressure 172.72 cm 88.9 kg 29.8 kg/m2 110/76 mm[Hg] 09/22/2018 02:30PM ACUTE - ESTABLISHED Height Weight BMI Blood Pressure 172.72 cm 86.64 kg 29 kg/m2 104/66 mm[Hg] 09/09/2018 09:10AM ACUTE - ESTABLISHED Height Weight BMI Blood Pressure 172.72 cm 87.09 kg 29.2 kg/m2 100/66 mm[Hg] 06/14/2018 08:50AM Annual Comprehensive Visit Height Weight BMI Blood Pressure 172.72 cm 86.18 kg 28.9 kg/m2 106/70 mm[Hg] 08/18/2017 08:40AM FOLLOW UP Height Weight BMI Blood Pressure 172.72 cm 84.82 kg 28.4 kg/m2 104/68 mm[Hg] 06/03/2017 08:30AM CHRONIC CARE MANAGEMENT Height Weight BMI Blood Pressure 172.72 cm 84.82 kg 28.4 kg/m2 122/74 mm[Hg] 12/02/2016 08:40AM FOLLOW UP Height Weight BMI Blood Pressure 172.72 cm 86.18 kg 28.9 kg/m2 120/72 mm[Hg]
[2021-07-05 10:18] LABS: PSA, Ultrasensitive 0.28 ng/mL (<= 6.5)
== END 2021-07-03 09:22 | disposition home or self-care (01) ==
PROVIDERS: PCP Internal Medicine; Visit Provider Nurse Practitioner Adult Health
DX: C61 Malignant neoplasm of prostate (principal); Z79.818 Long term (current) use of other agents affecting estrogen receptors and estrogen levels
CPT/HCPCS: 36415; 84153

== ENCOUNTER 2022-02-17 14:34 | Outpatient (CLI) | payer MEDICARE, SELFPAY ==
[2022-02-17 11:49] LABS: Abs Immature Grans 0.01 10^3/uL (0.0-0.06); Absolute Basophil Count 0.05 10^3/uL (0.0-0.2); Absolute Eosinophil Count 0.16 10^3/uL (0.0-0.7); Absolute Lymphocyte Count 2.35 10^3/uL (1.2-3.4); Absolute Monocyte Count 0.77 10^3/uL (0.1-0.8); Absolute Neutrophil Count 4.17 10^3/uL (1.2-6.7); Basophils % 0.7; Eosinophils % 2.1; HCT 42.9 % (40.0-50.0); HGB 14.2 g/dL (13.5-17.5); Immature Grans % 0.1; Lymphocytes % 31.3; MCH 28.7 pg (27.0-33.0); MCHC 33.1 % (32.0-36.0); MCV 86.8 fL (80-95); MPV 9.8 fL (8.0-11.0); Monocytes % 10.3; Neutrophils % 55.5; Nucleated RBC 0 %; Platelet Count 238 10^3/uL (130-400); RBC 4.94 10^6/uL (4.36-5.78); RDW 13.5 % (11.8-14.1); RDW-SD 43.1 fL; WBC 7.51 10^3/uL (4.4-10.8)
[2022-02-17 12:01] LABS: ALT 28 U/L (16-63); AST 20 U/L (15-37); Albumin 3.8 g/dL (3.4-5.0); Alkaline Phosphatase 87 U/L (46-116); Anion Gap 7.4 mmol/L (3-11); BUN 22 mg/dL (7-18); Bilirubin, Total 0.6 mg/dL (0.2-1.0); CO2 26.6 mmol/L (21.0-32.0); CREATININE 1.3 mg/dL (0.70-1.30); Chloride 104 mmol/L (98-107); Estimated GFR 53.82 (mL/min/1.73m2); Glucose 110 mg/dL (74-106); Potassium 4.3 mmol/L (3.5-5.1); Sodium 138 mmol/L (136-145); Total Protein 7.5 g/dL (6.4-8.2)
[2022-02-18 15:01] LABS: PSA, Ultrasensitive 1.4 ng/mL (<= 6.5)
[2022-02-20 12:18] LABS: Testosterone, Total 451 ng/dL (240-950)
== END 2022-02-17 14:35 | disposition home or self-care (01) ==
LOC: LBO 14:38
PROVIDERS: PCP Internal Medicine; Visit Provider Nurse Practitioner Adult Health
DX: C61 Malignant neoplasm of prostate (principal)
CPT/HCPCS: 36415; 80053; 84153; 84403; 85025

== ENCOUNTER 2022-06-17 15:46 | Outpatient (CLI) | payer MEDICARE, SELFPAY ==
[2022-06-17 12:51] LABS: Abs Immature Grans 0.02 10^3/uL (0.0-0.06); Absolute Basophil Count 0.05 10^3/uL (0.0-0.2); Absolute Eosinophil Count 0.14 10^3/uL (0.0-0.7); Absolute Lymphocyte Count 2.24 10^3/uL (1.2-3.4); Absolute Monocyte Count 0.84 10^3/uL (0.1-0.8); Absolute Neutrophil Count 6.12 10^3/uL (1.2-6.7); Basophils % 0.5; Eosinophils % 1.5; HCT 41.7 % (40.0-50.0); Immature Grans % 0.2; Lymphocytes % 23.8; MCH 29.2 pg (27.0-33.0); MCHC 33.6 % (32.0-36.0); MCV 87 fL (80-95); MPV 9.6 fL (8.0-11.0); Monocytes % 8.9; Neutrophils % 65.1; Platelet Count 198 10^3/uL (130-400); RDW 13.8 % (11.8-14.1); RDW-SD 44.1 fL; WBC 9.41 10^3/uL (4.4-10.8)
[2022-06-17 13:04] LABS: ALT 34 U/L (16-63); AST 23 U/L (15-37); Albumin 3.5 g/dL (3.4-5.0); Alkaline Phosphatase 61 U/L (46-116); Anion Gap 6.4 mmol/L (3-11); BUN 20 mg/dL (7-18); Bilirubin, Total 0.5 mg/dL (0.2-1.0); CO2 25.6 mmol/L (21.0-32.0); CREATININE 1.3 mg/dL (0.70-1.30); Calcium 8.7 mg/dL (8.5-10.1); Chloride 103 mmol/L (98-107); Estimated GFR 53.82 (mL/min/1.73m2); Glucose 107 mg/dL (74-106); Sodium 135 mmol/L (136-145); Total Protein 7.3 g/dL (6.4-8.2)
[2022-06-20 11:21] LABS: PSA, Ultrasensitive 1.9 ng/mL (<= 6.5)
[2022-06-23 17:09] LABS: Testosterone, Total 534 ng/dL (240-950)
== END 2022-06-17 15:47 | disposition home or self-care (01) ==
LOC: LBO 15:48
PROVIDERS: PCP Internal Medicine; Visit Provider Nurse Practitioner Adult Health
DX: C61 Malignant neoplasm of prostate (principal)
CPT/HCPCS: 36415; 80053; 84153; 84403; 85025

== ENCOUNTER 2022-10-13 04:08 | Outpatient (CLI) | payer MEDICARE, SELFPAY ==
[2022-10-13 13:33] LABS: Abs Immature Grans 0.01 10^3/uL (0.0-0.06); Absolute Basophil Count 0.04 10^3/uL (0.0-0.2); Absolute Eosinophil Count 0.21 10^3/uL (0.0-0.7); Absolute Lymphocyte Count 2.43 10^3/uL (1.2-3.4); Absolute Monocyte Count 0.79 10^3/uL (0.1-0.8); Absolute Neutrophil Count 3.66 10^3/uL (1.2-6.7); Basophils % 0.6; Eosinophils % 2.9; HCT 41.1 % (40.0-50.0); HGB 13.7 g/dL (13.5-17.5); Immature Grans % 0.1; MCH 29.3 pg (27.0-33.0); MCHC 33.3 % (32.0-36.0); MCV 88 fL (80-95); MPV 9.6 fL (8.0-11.0); Monocytes % 11.1; Neutrophils % 51.3; Platelet Count 209 10^3/uL (130-400); RBC 4.67 10^6/uL (4.36-5.78); RDW-SD 45.1 fL; WBC 7.14 10^3/uL (4.4-10.8)
[2022-10-13 13:50] LABS: ALT 30 U/L (16-63); AST 26 U/L (15-37); Albumin 3.6 g/dL (3.4-5.0); Alkaline Phosphatase 62 U/L (46-116); Anion Gap 6.5 mmol/L (3-11); BUN 22 mg/dL (7-18); Bilirubin, Total 0.4 mg/dL (0.2-1.0); CO2 27.5 mmol/L (21.0-32.0); CREATININE 1.4 mg/dL (0.70-1.30); Calcium 8.7 mg/dL (8.5-10.1); Chloride 104 mmol/L (98-107); Estimated GFR 52.09 (mL/min/1.73m2); Glucose 104 mg/dL (74-106); Potassium 4.3 mmol/L (3.5-5.1); Sodium 138 mmol/L (136-145); Total Protein 7.2 g/dL (6.4-8.2)
[2022-10-14 12:59] LABS: PSA, Ultrasensitive 2.2 ng/mL (<= 6.5)
[2022-10-16 09:54] LABS: Testosterone, Total 556 ng/dL (240-950)
== END 2022-10-13 04:09 | disposition home or self-care (01) ==
PROVIDERS: PCP Internal Medicine; Visit Provider Nurse Practitioner Adult Health
DX: C61 Malignant neoplasm of prostate (principal)
CPT/HCPCS: 36415; 80053; 84153; 84403; 85025